=== PATIENT | male | born 1960 | race Caucasian/White ===

== ENCOUNTER 2018-06-15 10:18 | Emergency (ER) | payer BC ==
[2018-06-15 10:38] VITALS: BP 157/98
--- NOTE | 2018-06-15 11:49 | EDM.PDOC ---
ED HPI GENERAL MEDICAL PROBLEM - General Chief Complaint: Skin Complaint Stated Complaint: CELLULITIS Time Seen by Provider: 06/15/18 10:53 Source of Information: Reports: Patient, Old Records, RN Notes Reviewed History Limitations: Reports: No Limitations - History of Present Illness INITIAL COMMENTS - FREE TEXT/NARRATIVE: Patient is a 57-year-old male who presents to the ED for the evaluation of a right lower leg cellulitis. This has been an ongoing problem for the gentleman since mid April. He has been hospitalized in [place] for 2 days and [place] at the [facility] for 8 days after that. His discharge from [place] was on May 25, 2018. During his hospital stay at [facility] he was on IV Rocephin, IV Vanco, IV linezolid, but was switched to just the IV linezolid and Rocephin shortly before discharge. He was discharged on oral linezolid (zyvox) for a 10 day course, and he relates that he did get this refilled once. So he has received around a 17-20 day course of this medication. The [facility] facility would not re-prescribe him more Zyvox as they thought it would be detrimental to his kidneys. He took his last antibiotic (zyvox) on 06/10/18. He states that his cellulitis was much worse and it has improved quite markedly , however over the last week he still feels somewhat nauseous, has had night sweats that wake him up from sleep. The area is still slightly reddened and warm to the touch. Of note, the patient is a diabetic. He does not have any open sores on his lower leg or his right foot. He was supposed to have a follow up appointment with Dr. Osorio in [place] in [place], she is an infectious disease physician. He states that he was unable to make this appointment because he could not find anyone to provide him a ride, and it is too painful for him to drive himself more than 5 minutes away from home. Right Leg Pain Score (Numeric/FACES): 0 - Related Data Allergies Allergy/AdvReac Type Severity Reaction Status Date / Time No Known Allergies Allergy Verified 06/15/18 10:41 Home Meds: Home Meds amLODIPine Besylate [Amlodipine Besylate] 10 mg PO DAILY 08/31/16 [History] metFORMIN [Glucophage XR] 500 mg PO BIDMEALS 08/31/16 [History] Amoxicillin/Clavulanate K [Augmentin 875-125 MG] 1 tab PO BID #14 tablet [Rx] Clopidogrel Bisulfate [Clopidogrel] 75 mg PO DAILY 06/15/18 [History] Doxycycline Hyclate 100 mg PO BID #22 capsule 06/15/18 [Rx] Non-Formulary Medication [NF Drug] 1 dose SQ WEEKLY 06/15/18 [History] Ondansetron [Zofran ODT] 4 mg PO Q6H PRN #28 tab.dis 06/15/18 [Rx] Pioglitazone HCl 45 mg PO DAILY 06/15/18 [History] Valsartan/Hydrochlorothiazide [Valsartan-Hctz 320-25 mg Tab] 1 tab PO DAILY [History] atorvaSTATin Calcium [Atorvastatin Calcium] 20 mg PO DAILY 06/15/18 [History] Past Medical History HEENT History: Reports: None Cardiovascular History: Reports: High Cholesterol, Hypertension Respiratory History: Reports: None Gastrointestinal History: Reports: None Genitourinary History: Reports: None Musculoskeletal History: Reports: None Neurological History: Reports: None Psychiatric History: Reports: None Endocrine/Metabolic History: Reports: Diabetes, Type II Hematologic History: Reports: None Immunologic History: Reports: None Oncologic (Cancer) History: Reports: None Dermatologic History: Reports: None, Cellulitis - Infectious Disease History Infectious Disease History: Reports: None - Past Surgical History Head Surgeries/Procedures: Reports: None HEENT Surgical History: Reports: None Cardiovascular Surgical History: Reports: None Respiratory Surgical History: Reports: None GI Surgical History: Reports: None Male Surgical History: Reports: None Endocrine Surgical History: Reports: None Neurological Surgical History: Reports: None Musculoskeletal Surgical History: Reports: None Dermatological Surgical History: Reports: None Social & Family History - Family History Family Medical History: Noncontributory - Tobacco Use Smoking Status *Q: Never Smoker - Caffeine Use Caffeine Use: Reports: Soda - Recreational Drug Use Recreational Drug Use: No ED ROS GENERAL - Review of Systems Review Of Systems: See Below Constitutional: Reports: Chills, Night Sweats. Denies: Malaise, Weakness HEENT: Reports: No Symptoms Respiratory: Reports: No Symptoms Cardiovascular: Reports: No Symptoms Endocrine: Reports: No Symptoms GI/Abdominal: Reports: No Symptoms : Reports: No Symptoms Musculoskeletal: Reports: Leg Pain (Right lower leg). Denies: Foot Pain, Joint Pain, Joint Swelling Skin: Reports: Erythema (to R lower extremity, warmth noted, with some venous stasis appearance. His RLE is taught to touch.) Neurological: Denies: Numbness, Tingling Psychiatric: Reports: No Symptoms Hematologic/Lymphatic: Reports: No Symptoms Immunologic: Reports: No Symptoms ED EXAM, SKIN/RASH Exam: See Below Exam Limited By: No Limitations General Appearance: Alert, WD/WN, No Apparent Distress Eye Exam: Bilateral Eye: Normal Inspection Ears: Normal External Exam Nose: Normal Inspection Throat/Mouth: Normal Inspection, Normal Lips, Normal Teeth, Normal Oropharynx, Normal Voice Head: Atraumatic, Normocephalic Neck: Normal Inspection Respiratory/Chest: No Respiratory Distress, Lungs Clear, Normal Breath Sounds, No Accessory Muscle Use, Chest Non-Tender Cardiovascular: Normal Peripheral Pulses, Regular Rate, Rhythm, No Edema, No Murmur Peripheral Pulses: 3+: Dorsalis Pedis (R) GI/Abdominal: Normal Bowel Sounds, Soft, Non-Tender, No Distention Extremities: Normal Range of Motion, Non-Tender, No Pedal Edema, Normal Capillary Refill, Increased Warmth (Of right lower extremity), Redness (Slight redness noted to right lower extremity, there is some venous stasis changes to this leg as well.). No: Pedal Edema, Joint Swelling Neurological: Alert, Oriented, Normal Cognition, No Motor/Sensory Deficits Psychiatric: Normal Affect, Normal Mood Skin: Warm, Dry, Intact, Erythema (Of right lower extremity), Increased Warmth ( Of right lower extremity). No: Wound/Incision Location, Skin: Lower Extremity, Right Characteristics: Patchy, Erythematous Associated features: Warmth, Swelling. No: Crusting, Weeping Course - Vital Signs Last Recorded V/S: Last Vital Signs Temp 97.2 F 06/15/18 10:33 Pulse 122 H 06/15/18 10:33 Resp 18 06/15/18 10:33 BP 157/98 H 06/15/18 10:33 Pulse Ox 99 06/15/18 10:33 - Orders/Labs/Meds Labs: Laboratory Tests 06/15/18 06/15/18 06/15/18 Range/Units 11:05 11:05 11:05 WBC 7.53 (4.23-9.07) K/mm3 RBC 4.75 (4.63-6.08) M/mm3 Hgb 13.8 (13.7-17.5) gm/L Hct 43.0 (40.1-51.0) % MCV 90.5 (79.0-92.2) fl MCH 29.1 (25.7-32.2) pg MCHC 32.1 L (32.2-35.5) g/dl RDW Std Deviation 49.5 H (35.1-43.9) fL Plt Count 333 (163-337) K/mm3 MPV 9.0 L (9.4-12.3) fl Neutrophils % (Manual) 73 H (40-60) % Band Neutrophils % 0 (0-10) % Lymphocytes % (Manual) 18 L (20-40) % Atypical Lymphs % 0 % Monocytes % (Manual) 9 (2-10) % Eosinophils % (Manual) 0 L (0.8-7.0) % Basophils % (Manual) 0 L (0.2-1.2) Platelet Estimate Adequate Plt Morphology Comment Normal RBC Morph Comment Normal Sodium 136 (136-145) mEq/L Potassium 4.2 (3.5-5.1) mEq/L Chloride 99 (98-107) mEq/L Carbon Dioxide 27 (21-32) mEq/L Anion Gap 14.2 (5-15) BUN 20 H (7-18) mg/dL Creatinine 1.5 H (0.7-1.3) mg/dL Est Cr Clr Drug Dosing 62.14 mL/min Estimated GFR (MDRD) 48 (>60) mL/min BUN/Creatinine Ratio 13.3 L (14-18) Glucose 332 H (74-106) mg/dL Calcium 9.2 (8.5-10.1) mg/dL Total Bilirubin 0.5 (0.2-1.0) mg/dL AST 12 L (15-37) U/L ALT 19 (16-63) U/L Alkaline Phosphatase 91 (46-116) U/L C-Reactive Protein 0.7 (<1.0) mg/dL Total Protein 7.6 (6.4-8.2) g/dl Albumin 3.3 L (3.4-5.0) g/dl Globulin 4.3 gm/dL Albumin/Globulin Ratio 0.8 L (1-2) - Re-Assessments/Exams Free Text/Narrative Re-Assessment/Exam: 06/15/18 11:15 Patient presents to the ED for a cellulitis of his right lower leg. He has been doctoring for this for quite some time. I have ordered CBC, CMP and CRP for further evaluation of this. 06/15/18 13:07 Patient's labs are back and are essentially within normal limits. I was able to get ahold of Dr. Osorio, infectious disease physician at [facility]. She recommends that the patient replaced on doxycycline and Augmentin for antibiotic coverage. She recommends that he follow up with her in clinic late next week Monday. This has been made aware to the patient and he will make an appointment to see Dr. Osorio. Departure - Departure Time of Disposition: 13:08 Disposition: Home, Self-Care 01 Condition: Fair Clinical Impression: Cellulitis Qualifiers: Site of cellulitis: extremity Site of cellulitis of extremity: lower extremity Laterality: right Qualified Code(s): L03.115 - Cellulitis of right lower limb - Discharge Information *PRESCRIPTION DRUG MONITORING PROGRAM REVIEWED*: No *COPY OF PRESCRIPTION DRUG MONITORING REPORT IN PATIENT LEATHA: No Prescriptions: Amoxicillin/Clavulanate K [Augmentin 875-125 MG] 1 tab PO BID #14 tablet Doxycycline Hyclate 100 mg PO BID #22 capsule Ondansetron [Zofran ODT] 4 mg PO Q6H PRN #28 tab.dis PRN Reason: Nausea Referrals: Yimi Castaneda MD [Primary Care Provider] - Forms: ED Department Discharge Additional Instructions: You have been evaluated in the ED today for your right lower leg cellulitis. You have been prescribed 2 different antibiotics. 1. Doxycycline 200 mg (2caps ) by mouth twice daily for 4 days, and then 100 mg (1cap) by mouth twice daily until gone. 2. Augmentin please take one tab by mouth twice daily for 7 days or until gone. This antibiotic can cause diarrhea so please take this with food and also start taking a probiotic so that you may have a lesser chance of developing diarrhea from this. You have been prescribed a medication for nausea (Zofran), take one tablet dissolvable under your tongue every 8 hours as needed for nausea. These medications have been electronically sent to the [place] pharmacy located in the [employer] [facility] at the [facility] Dr. Osorio, infectious disease physician requests that you schedule an appointment to see her for follow-up late next week Monday. Please call her office to do so. Please return to the ED if your symptoms change or worsen.
== END 2018-06-15 13:15 | disposition home or self-care (01) ==
LOC: JD.ED 10:18
DX: L03.115 Cellulitis of right lower limb (principal); I10 Essential (primary) hypertension; E78.00 Pure hypercholesterolemia, unspecified; E11.9 Type 2 diabetes mellitus without complications; Z79.84 Long term (current) use of oral hypoglycemic drugs; Z79.899 Other long term (current) drug therapy
CPT/HCPCS: 36415; 80053; 85007; 85027; 86140; 99283; 99284